=== PATIENT | male | born 1965 | race Caucasian/White ===

== ENCOUNTER 2024-08-27 11:46 | Emergency (ER) | payer OTHER, MEDICAID ==
[~2024-08-27 11:46] MED LIST: Iopamidol-370 76% 500 ML MDV (1 ML CHARGE) ONE
[2024-08-27 12:48] LABS: #Basophils 0.05 10x3/uL (0.0-0.2); %Basophils 0.7 % (0.0-1.0); %Eosinophils 0.7 % (0.0-10.0); %Lymphocytes 24.3 % (21.0-51.0); Hematocrit 45.6 % (42.0-52.0); Hemoglobin 15.8 g/dL (14.0-18.0); Mean Corpuscular HGB CONC 34.6 g/dL (32.0-36.0); Mean Corpuscular Hemoglobin 30.9 pg (27.0-31.0); Mean Corpuscular Volume 89.2 fL (78.0-98.0); Mean Platelet Volume 9.5 fL (7.4-10.4); Platelet Count 286 10x3/uL (130-400); RBC Distribution Width 12.7 % (11.5-14.5); Red Blood Cell (RBC) Count 5.11 mill/uL (4.70-6.10)
[2024-08-27 13:03] LABS: ALT (SGPT) 34 U/L (Less than 45); AST (SGOT) 39 U/L (11-34); Albumin 4.3 g/dL (3.1-4.5); Alkaline Phosphatase 61 U/L (40-110); Anion Gap 15 mmol/L (10-20); BUN (Urea Nitrogen) 13 mg/dL (8.4-25.7); Bilirubin, Total 1.3 mg/dL (0.3-1.2); Calc. Creatinine Clearance 0 mL/min (70-130); Calcium 9.9 mg/dL (7.8-10.44); Carbon Dioxide 26 mmol/L (22-29); Chloride 102 mmol/L (98-107); Estimated GFR 96; Globulin 3.7 g/dL (2.4-3.5); Glucose 153 mg/dL (70-105); Lipase 62 U/L (8-78); Potassium 4.2 mmol/L (3.5-5.1); Sodium 139 mmol/L (136-145)
[2024-08-27 13:07] LABS: Troponin I Less than 0.010 ng/mL (< 0.028)
[2024-08-27] MEDS ORDERED: Morphine 4 MG/ML VIAL ONE (13:52)
[2024-08-27] MEDS ORDERED: Ondansetron PF 4 MG/2 ML Vial ONE (13:52)
[2024-08-27] MEDS ORDERED: Mag-Al 1200 mg/1200 mg/30 ML UDCUP ONE (14:28)
[2024-08-27] MEDS ORDERED: Lidocaine Viscous Sol 2% 15 ml UD Cup ONE (14:28)
[2024-08-27 15:41] LABS: Bacteria/HPF None Seen HPF (None Seen); Bilirubin Negative (Negative); Blood, Urine Trace (Negative); CAUTI Indications for Culture Pelvic or flank pain; Clarity Clear (Clear); Glucose, Urine (Dipstick) Greater than 1000 mg/dL (Negative); Ketone, Urine Trace mg/dL (Negative); Leukocyte Negative Leu/uL (Negative); Nitrite Negative (Negative); Protein, Urine (Dipstick) 30 mg/dL (Neg-Trace); RBC/HPF None Seen HPF (0-3); Squamous Epithelial None Seen HPF (0-3); Urobilinogen Normal mg/dL (Less than 2); WBC/HPF 0-3 HPF (0-3); pH, Urine 5.5 (5.0-9.0)
[2024-08-27 15:45] LABS: Urine Culture Reflex No No
== END 2024-08-27 16:41 | disposition home or self-care (01) ==
LOC: ERS 11:46
DX: R10.13 Epigastric pain (principal); R11.2 Nausea with vomiting, unspecified; R07.9 Chest pain, unspecified; E11.9 Type 2 diabetes mellitus without complications; I10 Essential (primary) hypertension; E78.5 Hyperlipidemia, unspecified; Z79.84 Long term (current) use of oral hypoglycemic drugs
CPT/HCPCS: 71045; 74177; 80053; 81001; 83605; 83690; 84484; 85025; 87086; 93005; J2270; J2405; 36415; 96374; 96375; Q9967